=== PATIENT | male | born 1980 | race Caucasian/White ===

== ENCOUNTER 2023-03-14 10:45 | Outpatient (CLI) | payer BC, OTHER | END 2023-03-14 10:46 | disposition home or self-care (01) | LOC: SCSRAD 10:45 | PROVIDERS: ATTEND Family Medicine | DX: S99.912A Unspecified injury of left ankle, initial encounter (principal) ==

== ENCOUNTER 2023-08-20 15:42 | Outpatient (CLI) | payer BC ==
[2023-08-20 16:34] LABS: #Eosinphils 0.3 10x3/uL (0.0-0.5); #Monocytes 0.6 10x3/uL (0.0-1.1); #Neutrophils 4.3 10x3/uL (1.5-8.4); %Basophils 0.5 % (0.0-2.0); %Eosinophils 3.7 % (0.0-6.0); %Lymphocytes 31.9 % (18.0-47.0); %Monocytes 7.8 % (0.0-10.0); Hematocrit 43.1 % (38.8-50.0); Hemoglobin 14.4 g/dL (13.5-17.5); Mean Corpuscular HGB CONC 33.4 g/dL (32.0-36.0); Mean Corpuscular Hemoglobin 27.1 pg (27.0-33.0); Mean Platelet Volume 8.9 fl (7.4-10.4); Platelet Count 255 10x3/uL (150-450); RBC Distribution Width 12.8 % (11.5-14.5); Red Blood Cell (RBC) Count 5.32 10x6/uL (4.32-5.72); White Blood Cell (WBC) Count 7.7 10x3/uL (3.5-10.5)
[2023-08-20 16:42] LABS: Anion Gap 12 mmol/L (10-20); BUN (Urea Nitrogen) 12 mg/dL (8.9-20.6); Calc. Creatinine Clearance 0 mL/min (70-130); Calcium 9.3 mg/dL (7.8-10.44); Carbon Dioxide 26 mmol/L (22-29); Chloride 105 mmol/L (98-107); Estimated GFR 85; Glucose 95 mg/dL (70-105); Sodium 139 mmol/L (136-145)
== END 2023-08-20 15:43 | disposition home or self-care (01) ==
LOC: LABBT 15:42
PROVIDERS: ATTEND Surgery
DX: Z01.812 Encounter for preprocedural laboratory examination (principal); K42.9 Umbilical hernia without obstruction or gangrene
CPT/HCPCS: 80048; 85025

== ENCOUNTER 2023-08-23 10:57 | Day surgery (SDC) | payer SELFPAY ==
[2023-08-20 15:59] VITALS: BMI 29.5
[2023-08-23] MEDS ORDERED: Lidocaine 1% MPF 2 ML VIAL ONE (11:27)
[2023-08-23] MEDS ORDERED: CEFAZOLIN 2 GM VIAL ONE (11:28)
[2023-08-23] MEDS ORDERED: Sodium Chloride 0.9% 100 ML ONE (11:28)
[2023-08-23] MEDS ORDERED: Bupivacaine 0.25% HCL 30 ML VIAL ONE (11:42)
[2023-08-23] MEDS ORDERED: EPINEPHrine 1 MG/ML VIAL ONE (11:42)
[2023-08-23] MEDS ORDERED: PROPOFOL 20 ML ONE ×2 (11:54→12:58)
[2023-08-23] MEDS ORDERED: fentaNYL PF 100 MCG/2 ML SYRINGE ONE ×2 (11:54→13:21)
[2023-08-23] MEDS ORDERED: Lidocaine 1% PF 5 ML VIAL ONE (11:55)
[2023-08-23] MEDS ORDERED: Rocuronium Bromide 10 MG/ML (10ML VIAL) ONE (11:55)
[2023-08-23] MEDS ORDERED: Midazolam HCl 2 mg/2 ml Vial ONE (12:11)
[2023-08-23] MEDS ORDERED: Famotidine/PF 20 mg/2ml Vial ONE (12:12)
[2023-08-23] MEDS ORDERED: Dexamethasone 4 mg/ml Vial ONE (12:45)
[2023-08-23] MEDS ORDERED: Ketorolac Tromethamine 30 MG (1 mL) VIAL ONE (12:45)
[2023-08-23] MEDS ORDERED: Ondansetron PF 4 MG/2 ML Vial ONE (12:45)
[2023-08-23] MEDS ORDERED: SUGAMMADEX SODIUM 200 MG/2 ML VIAL ONE (12:49)
[2023-08-23] MEDS ORDERED: fentaNYL 50 mcg/mL 1 mL Vial ONE (14:01)
[2023-08-23] MEDS ORDERED: HYDROcodone/Acetaminophen 5/325 mg Tablet ONE (14:27)
== END 2023-08-23 15:36 | disposition home or self-care (01) ==
LOC: SDC 10:57
PROVIDERS: ATTEND Surgery
PROC: 0WQF0ZZ Repair Abdominal Wall, Open Approach (ICD-10-PCS; principal; 2023-08-23)
DX: K43.9 Ventral hernia without obstruction or gangrene (principal); G43.909 Migraine, unspecified, not intractable, without status migrainosus; Z88.5 Allergy status to narcotic agent; Z91.011 Allergy to milk products
CPT/HCPCS: C1781; J0171; J0665; J1100; J1885; J2250; J2405; J2704; J3010; J3490; S0028